=== PATIENT | female | born 1990 | race African-American/Black ===

== ENCOUNTER 2016-08-15 18:37 | Emergency (ER) | payer SELFPAY ==
[~2016-08-15] VITALS: Wt 116.6 kg
--- NOTE | ~2016-08-15 | EKG ---
[place], [place] ELECTROCARDIOGRAM REPORT NAME: BRISEIDA BHATTI UNIT #: [id number] ROOM: DOCTOR: NATI MONSALVE MD BIRTHDATE: [birth year] DOS: 08/15/2016 TIME: 2002 hours. Normal sinus rhythm at 64 beats per minute. The tracing is normal. No previous tracing is available for comparison. NATI MONSALVE MD CM:EKGRPT:ELECTROCARDIOGRAM REPORT [id number] NATI MONSALVE MD
[~2016-08-15 18:37] MED LIST: AMOXICILLIN500 M2 PO; AMOXICILLIN500 MG PO; ATARAX25 MG PO; CIPRO250 MG PO; CLARITIN10 MG PO; EPI EZ PEN1 MG/ML IM; EPI-PEN1 MG/ML MR; FIORICET 325 MG1 TAB PO; KEFLEX500 MG PO; MOTRIN600 MG PO; MOTRIN800 MG PO; MULTIPLE VITAMI1 CTB PO; NAPROSYN500 MG PO; NKHM; PEPCID20 MG PO; PREDNICOT20 MG PO; VIBRAMYCIN100 MG PO; ZOFRAN ODT4 MG SL
[2016-08-15 19:59] LABS: BASO % 0.3 % (0.0-1.0); EOS # 0.3 10*3/uL (0.0-0.4); EOS % 2.5 % (1.0-4.0); HEMATOCRIT 37.7 % (37.0-47.0); HEMOGLOBIN 11.7 g/dl (12.0-16.0); LYMPH # 2.9 10*3/uL (1.3-4.4); LYMPH % 27.8 % (27.0-41.0); MEAN CELL VOLUME 93.8 fl (81.0-99.0); MEAN CORPUSCULAR HGB 29.1 pg (27.0-31.0); MEAN PLATELET VOLUME 9.8 fl (9.6-12.3); MONO # 0.6 10*3/uL (0.1-1.0); MONO % 5.5 % (3.0-9.0); NEUT # 6.5 10*3/uL (2.3-7.9); NEUT % 63.5 % (47.0-73.0); PLATELET COUNT AUTOMATED 342 10*3/uL (130-400); RED BLOOD COUNT 4.02 10*6/uL (4.10-5.10); RED CELL DISTRI WIDTH 13.3 % (0-14.5); WHITE BLOOD COUNT 10.3 10*3/uL (4.8-10.8)
[2016-08-15 20:23] LABS: ALBUMIN 3.4 gm/dl (3.1-4.5); ALKALINE PHOSPHATASE 62 U/L (45-117); BILIRUBIN, TOTAL 0.2 mg/dl (0.2-1.0); BUN 17 mg/dl (7-24); CARBON DIOXIDE 25 mmol/L (21-32); CHLORIDE 107 mmol/L (98-107); EST GLOM FILT AFRICAN AMERICAN 47 ml/min; GLUCOSE 87 mg/dL (65-99); POTASSIUM 4.4 mmol/L (3.5-5.1); SGOT/AST 21 IU/L (3-35); SGPT/ALT 31 U/L (12-78); SODIUM 140 mmol/L (136-145); TOTAL PROTEIN 7.4 gm/dL (6.4-8.2)
[2016-08-15 20:24] LABS: TROPONIN I < 0.015 ng/ml (<0.5)
[2016-08-15] MEDS ORDERED: ANAPROX DS550 MG PO (20:38)
[2016-08-15] MEDS ORDERED: ULTRAM50 MG PO (20:38)
== END 2016-08-15 20:52 | disposition home or self-care (01) ==
LOC: ED 18:37
PROVIDERS: Emergency Medicine Emergency Medical Services
DX: R09.1 Pleurisy (principal); F41.9 Anxiety disorder, unspecified; G89.29 Other chronic pain; M25.552 Pain in left hip; M25.562 Pain in left knee; F17.200 Nicotine dependence, unspecified, uncomplicated

== ENCOUNTER → 2017-04-14 | Outpatient (CLI) | payer OTHER ==
[~2017-04-14] MED LIST changes: +ANAPROX DS550 MG PO; +ULTRAM50 MG PO
[2017-04-14 09:55] LABS: BASO % 0.3 % (0.0-1.0); EOS # 0.2 10*3/uL (0.0-0.4); EOS % 3.1 % (1.0-4.0); HEMATOCRIT 38.6 % (37.0-47.0); HEMOGLOBIN 12.1 g/dl (12.0-16.0); LYMPH # 2.1 10*3/uL (1.3-4.4); LYMPH % 28.1 % (27.0-41.0); MEAN CELL VOLUME 92.3 fl (81.0-99.0); MEAN CORPUSCULAR HGB 28.9 pg (27.0-31.0); MEAN CORPUSCULAR HGB CONC 31.3 g/dl (33.0-37.0); MEAN PLATELET VOLUME 10.2 fl (9.6-12.3); MONO # 0.5 10*3/uL (0.1-1.0); MONO % 6.9 % (3.0-9.0); NEUT # 4.6 10*3/uL (2.3-7.9); NEUT % 61.2 % (47.0-73.0); PLATELET COUNT AUTOMATED 360 10*3/uL (130-400); RED BLOOD COUNT 4.18 10*6/uL (4.10-5.10); RED CELL DISTRI WIDTH 13.4 % (0-14.5); WHITE BLOOD COUNT 7.5 10*3/uL (4.8-10.8)
[2017-04-14 10:09] LABS: ALBUMIN 3.6 gm/dl (3.1-4.5); ALKALINE PHOSPHATASE 63 U/L (45-117); BUN 8 mg/dl (7-24); CHLORIDE 107 mmol/L (98-107); CHOLESTEROL 141 mg/dL (<200); CREATININE 0.86 mg/dL (0.55-1.02); HDL CHOLESTEROL 38 mg/dl (40-60); LDL CHOLESTEROL 77 mg/dL (9-159); POTASSIUM 4.1 mmol/L (3.5-5.1); SGOT/AST 19 IU/L (3-35); SGPT/ALT 24 U/L (12-78); SODIUM 137 mmol/L (136-145); TOTAL PROTEIN 7.7 gm/dL (6.4-8.2); TRIGLYCERIDES 132 mg/dl (<150); VLDL CHOLESTEROL 26 mg/dL (6-40)
== END | disposition home or self-care (01) ==
LOC: LAB 09:16
PROVIDERS: Nurse Practitioner Family
DX: D64.9 Anemia, unspecified (principal); R07.9 Chest pain, unspecified; R63.5 Abnormal weight gain

== ENCOUNTER 2017-12-22 18:59 | Emergency (ER) | payer OTHER ==
[~2017-12-22] VITALS: Wt 117.9 kg
[2017-12-22] MEDS ORDERED: KEFLEX500 M1 PO (19:11)
[2017-12-22] MEDS ORDERED: NAPROSYN500 MG PO (19:11)
[2017-12-22] MEDS ORDERED: D3-5050000 UNIT PO (19:14)
[2017-12-22] MEDS ORDERED: HYDROXYZINE HCL25 M1 PO (19:14)
== END 2017-12-22 19:20 | disposition home or self-care (01) ==
LOC: ED 18:59
DX: S60.351A Superficial foreign body of right thumb, initial encounter (principal); G89.29 Other chronic pain; M25.562 Pain in left knee; Z79.899 Other long term (current) drug therapy; W22.03XA Walked into furniture, initial encounter; Y93.89 Activity, other specified; Y92.89 Other specified places as the place of occurrence of the external cause; Y99.9 Unspecified external cause status

== ENCOUNTER 2020-11-12 12:43 | Emergency (ER) | payer MEDICAID ==
[~2020-11-12] VITALS: Ht 175.2 cm; Wt 122.5 kg
[~2020-11-12 12:43] MED LIST changes: +D3-5050000 UNIT PO; +HYDROXYZINE HCL25 M1 PO; +KEFLEX500 M1 PO
[2020-11-12 13:16] LABS: BASO # 0.1 10*3/uL (0.0-0.1); BASO % 0.5 % (0.0-1.0); EOS # 0.4 10*3/uL (0.0-0.4); EOS % 3.7 % (1.0-4.0); HEMATOCRIT 41.4 % (37.0-47.0); LYMPH # 3.1 10*3/uL (1.3-4.4); LYMPH % 31.9 % (27.0-41.0); MEAN CELL VOLUME 94.3 fl (81.0-99.0); MEAN CORPUSCULAR HGB 29.8 pg (27.0-31.0); MEAN CORPUSCULAR HGB CONC 31.6 g/dl (33.0-37.0); MEAN PLATELET VOLUME 9.8 fl (9.6-12.3); MONO # 0.6 10*3/uL (0.1-1.0); MONO % 5.8 % (3.0-9.0); NEUT # 5.6 10*3/uL (2.3-7.9); NEUT % 57.9 % (47.0-73.0); PLATELET COUNT AUTOMATED 401 10*3/uL (130-400); RED BLOOD COUNT 4.39 10*6/uL (4.10-5.10); RED CELL DISTRI WIDTH 12.7 % (0-14.5); WHITE BLOOD COUNT 9.6 10*3/uL (4.8-10.8)
[2020-11-12 13:30] LABS: ALKALINE PHOSPHATASE 62 U/L (45-117); BUN 11 mg/dl (7-24); CHLORIDE 107 mmol/L (98-107); CREATININE 0.73 mg/dL (0.55-1.02); POTASSIUM 3.8 mmol/L (3.5-5.1); SGOT/AST 17 IU/L (3-35); SGPT/ALT 22 U/L (12-78); SODIUM 139 mmol/L (136-145); TOTAL PROTEIN 6.4 gm/dL (6.4-8.2)
[2020-11-12 13:37] LABS: BILIRUBIN Negative (Negative); BLOOD 1+ (Negative); CLARITY Clear (Clear); COLOR Yellow (Yellow); GLUCOSE Negative (Negative); KETONE Negative (Negative); LEUKO ESTERASE Negative (Negative); NITRITE Negative (Negative); SPECIFIC GRAVITY <= 1.005 (1.001-1.030); UROBILINOGEN 0.2 E.U./dl (0.0-1.0)
[2020-11-12 14:01] LABS: BACTERIA 2+; EPITHELIAL CELLS 16-20
[2020-11-12] MEDS ORDERED: CEFUROXIME AXE500 MG PO (14:42)
== END 2020-11-12 14:48 | disposition home or self-care (01) ==
LOC: ED 12:43
PROVIDERS: Physician Assistant
DX: N39.0 Urinary tract infection, site not specified (principal); R60.0 Localized edema